=== PATIENT | male | born 1960 | race Caucasian/White ===

== ENCOUNTER 2018-07-31 14:06 | Inpatient (IN) ==
[2018-07-31] MEDS ORDERED: GLUCAGON 1 MG VIAL IM PRN (14:33)
[2018-07-31] MEDS ORDERED: DEXTROSE 50% 25 GM/50 ML VIAL IV PRN (14:33)
[2018-07-31] MEDS: ONDANSETRON 4 MG/2 ML VIAL IV PRN (16:15)
[2018-07-31] MEDS: SODIUM CHLORIDE 0.9% 1,000 ML IV SCH (16:18)
[2018-07-31] MEDS: LEVOFLOXACIN INJ 500 MG in PREMIX 1 EACH IV SCH (16:18)
[2018-07-31] MEDS: INSULIN LISPRO 100 UNIT/ML SUBCUT SCH ×2 (16:29→21:51)
[2018-07-31] MEDS: LOSARTAN 50 MG TABLET PO SCH (21:49)
[2018-07-31] MEDS: ACETAMINOPHEN 325 MG TABLET PO PRN (21:49)
[2018-08-01] MEDS: SODIUM CHLORIDE 0.9% 1,000 ML IV SCH ×3 (01:25→17:34)
[2018-08-01 06:46] LABS: Basophils % 0.3 % (0.0-0.8); Eosinophils % 0.2 % (0.00-10.9); Hematocrit 43.9 VOL% (42.0-52.0); Hemoglobin 14.5 GM/DL (14.0-18.0); Immature Granulocytes % 0.6 %; Immature Granulocytes Absolute 0.08 #; Lymphocytes # 0.7 10*3/uL (1.4-4.0); Lymphocytes % 5.4 % (21.2-54.2); Mean Corpuscular Hemoglobin 28 PG (27-34); Mean Corpuscular Volume 85.9 FL (87-102); Mean Platelet Volume 10.3 FL (9.6-12.0); Monocytes # 1.2 10*3/uL (0.11-0.8); Monocytes % 9.5 % (1.7-12.7); Neutrophils # 10.5 10*3/uL (1.4-7.4); Platelet Count 141 T/CUMM (130-400); Red Blood Count 5.11 MC/CUMM (3.8-5.5); Red Cell Distribution Width 12.6 % (9.3-17.3); White Blood Count 12.5 T/CUMM (4-12)
[2018-08-01 07:03] LABS: Calcium 8.1 MG/DL (8.5-10.1); Osmolality,Calculated 278.8 MOS/KG (273-304); Potassium 4.1 MMOL/L (3.5-5.1)
[2018-08-01 07:05] LABS: Albumin 3.2 G/DL (3.4-5.0); Bilirubin,Direct 0.46 MG/DL (0.0-0.20); Bilirubin,Indirect 0.7 MG/DL (0.0-1.0); Bilirubin,Total 1.2 MG/DL (0.2-1.0)
[2018-08-01] MEDS: INSULIN LISPRO 100 UNIT/ML SUBCUT SCH ×4 (08:07→21:22)
[2018-08-01] MEDS: VENLAFAXINE XR 75 MG CAPSULE PO SCH (08:12)
[2018-08-01] MEDS: LOSARTAN 50 MG TABLET PO SCH (08:13)
[2018-08-01] MEDS: XIGDUO PO SCH (08:13)
[2018-08-01] MEDS: PANTOPRAZOLE 40 MG TABLET PO SCH (08:13)
[2018-08-01] MEDS ORDERED: Exenatide Microspheres [Bydureon] 2 MG SQ SCH (09:00)
[2018-08-01] MEDS: LEVOFLOXACIN INJ 500 MG in PREMIX 1 EACH IV SCH (14:52)
[2018-08-01] MEDS: DOCUSATE SODIUM 100 MG CAPSULE PO PRN (14:55)
[2018-08-01] MEDS: ACETAMINOPHEN 325 MG TABLET PO PRN (17:33)
[2018-08-01] MEDS ORDERED: HYOSCYAMINE 0.125 MG TABLET PO PRN (17:42)
[2018-08-01 18:39] LABS: Pt O2 Delivery Device Room Air
[2018-08-01 18:40] LABS: ABG Base Excess -3.3 MMOL/L (-2.5-2.5); ABG HCO3 21.7 MMOL/L (20-26); ABG Oxygen Saturation 98.6 % (95-100); ABG PCO2 26.7 MM HG (35-48); ABG PH 7.458 (7.35-7.45)
[2018-08-01] MEDS: HYDROmorphone 2 MG/1 ML VIAL IV PRN ×2 (19:57→23:55)
[2018-08-02] MEDS: HYDROmorphone 2 MG/1 ML VIAL IV PRN ×3 (04:50→20:13)
[2018-08-02] MEDS: ONDANSETRON 4 MG/2 ML VIAL IV PRN (04:50)
[2018-08-02] MEDS: SODIUM CHLORIDE 0.9% 1,000 ML IV SCH ×2 (04:55→13:23)
[2018-08-02 08:36] LABS: Basophils % 0.3 % (0.0-0.8); Eosinophils # 0.2 10*3/uL (0.0-0.87); Eosinophils % 1.7 % (0.00-10.9); Hematocrit 42.4 VOL% (42.0-52.0); Hemoglobin 14.5 GM/DL (14.0-18.0); Immature Granulocytes % 0.5 %; Immature Granulocytes Absolute 0.05 #; Lymphocytes # 0.6 10*3/uL (1.4-4.0); Lymphocytes % 6.2 % (21.2-54.2); Mean Corpuscular HGB Conc 34.2 GM/DL (32-36); Mean Corpuscular Hemoglobin 29 PG (27-34); Mean Corpuscular Volume 84.3 FL (87-102); Mean Platelet Volume 10.3 FL (9.6-12.0); Monocytes # 0.9 10*3/uL (0.11-0.8); Monocytes % 9.4 % (1.7-12.7); Neutrophils # 7.9 10*3/uL (1.4-7.4); Neutrophils % 81.9 % (38.7-73.9); Platelet Count 148 T/CUMM (130-400); Red Blood Count 5.03 MC/CUMM (3.8-5.5); Red Cell Distribution Width 12.3 % (9.3-17.3); White Blood Count 9.7 T/CUMM (4-12)
[2018-08-02] MEDS: INSULIN LISPRO 100 UNIT/ML SUBCUT SCH ×4 (08:49→22:24)
[2018-08-02] MEDS: XIGDUO PO SCH (08:56)
[2018-08-02] MEDS: LOSARTAN 50 MG TABLET PO SCH (09:00)
[2018-08-02] MEDS: VENLAFAXINE XR 75 MG CAPSULE PO SCH (09:00)
[2018-08-02] MEDS: PANTOPRAZOLE 40 MG TABLET PO SCH (09:00)
[2018-08-02 09:05] LABS: Albumin 2.9 G/DL (3.4-5.0); Bilirubin,Direct 0.24 MG/DL (0.0-0.20); Bilirubin,Indirect 0.4 MG/DL (0.0-1.0); Bilirubin,Total 0.6 MG/DL (0.2-1.0); Total Protein 6.4 G/DL (6.4-8.3)
[2018-08-02 09:51] LABS: Risk Ratio 5.39; VLDL CHOLESTEROL 22.6 MG/DL
[2018-08-02] MEDS: DOCUSATE SODIUM 100 MG CAPSULE PO PRN (15:59)
[2018-08-02] MEDS: ENOXAPARIN 30 MG/0.3 ML SYRINGE SUBCUT SCH (15:59)
[2018-08-02] MEDS: LEVOFLOXACIN INJ 500 MG in PREMIX 1 EACH IV SCH (15:59)
[2018-08-03] MEDS: ONDANSETRON 4 MG/2 ML VIAL IV PRN (00:03)
[2018-08-03] MEDS: HYDROmorphone 2 MG/1 ML VIAL IV PRN ×2 (00:04→04:28)
[2018-08-03] MEDS: SODIUM CHLORIDE 0.9% 1,000 ML IV SCH ×3 (00:06→22:59)
[2018-08-03 06:56] LABS: Calcium 8.4 MG/DL (8.5-10.1); Potassium 4.4 MMOL/L (3.5-5.1)
[2018-08-03] MEDS: XIGDUO PO SCH (09:17)
[2018-08-03] MEDS: LOSARTAN 50 MG TABLET PO SCH (09:18)
[2018-08-03] MEDS: VENLAFAXINE XR 75 MG CAPSULE PO SCH (09:18)
[2018-08-03] MEDS: PANTOPRAZOLE 40 MG TABLET PO SCH (09:18)
[2018-08-03] MEDS: INSULIN LISPRO 100 UNIT/ML SUBCUT SCH ×3 (13:08→21:07)
[2018-08-03] MEDS: ENOXAPARIN 30 MG/0.3 ML SYRINGE SUBCUT SCH (18:42)
[2018-08-03] MEDS: LEVOFLOXACIN INJ 500 MG in PREMIX 1 EACH IV SCH (18:48)
[2018-08-03] MEDS ORDERED: LEVOFLOXACIN INJ 500 MG in PREMIX 1 EACH IV SCH (19:00)
[2018-08-04] MEDS: SODIUM CHLORIDE 0.9% 1,000 ML IV SCH (06:14)
[2018-08-04] MEDS: XIGDUO PO SCH (09:30)
[2018-08-04] MEDS: VENLAFAXINE XR 75 MG CAPSULE PO SCH (09:31)
[2018-08-04] MEDS: LOSARTAN 50 MG TABLET PO SCH (09:31)
[2018-08-04] MEDS: PANTOPRAZOLE 40 MG TABLET PO SCH (09:31)
[2018-08-04] MEDS: INSULIN LISPRO 100 UNIT/ML SUBCUT SCH (10:59)
[2018-08-04 12:56] VITALS: BP 154/84
== END 2018-08-04 11:35 | disposition home or self-care (01) | DRG 440 ==
LOC: N.5E
PROVIDERS: ADMIT Family Medicine; ATTEND Family Medicine